=== PATIENT | female | born 1940 | race Caucasian/White ===

== ENCOUNTER 2016-10-11 10:06 | Emergency (ER) | payer OTHER ==
[~2016-10-11] VITALS: Ht 157.5 cm; Wt 136.4 kg
[~2016-10-11 10:06] MED LIST: ADVAIR 250-501 EACH IH; ADVAIR 250/501 DISK IH; AMMONIUM LACTA140 GM TP; Advair HFA 115/21 IH; CALCIUM 600 +1 EAC9 PO; CARDIZEM CD,CA180 MG PO; CARDURA XL4 MG PO; CEFTIN500 MG PO; CELEBREX200 MG PO; CELEBREX50 MG PO; CLARITIN10 MG PO; COUMADIN1 MG PO; COUMADIN2 MG PO; COUMADIN4 MG PO; CYANOCOBALAM1000 MCG PO; Claritin,Alavart PO; Colace PO; D3 DOTS2000 UNIT PO; DILACOR PO; DILTIAZEM 24HR360 M1 PO; DUONEB 2.5-0.5 M3 ML AEROSOL; ERYTHROMYCIN250 M1 PO; ESCITALOPRAM OX20 MG PO; FEROSUL325 MG PO; FERROUS SULFAT325 MG PO; FLONASE16 G1 BOTH NARES; FOLIC ACID1 MG PO; FORTAMET500 M1 PO; FUROSEMIDE40 MG PO; FUROSEMIDE80 MG PO; Folvite PO; GLUCO BURST37.5 GM PO; HUMULIN N100 UNITS/ SC; HUMULIN NP100 UNIT/1 SC; HYDROCHLOROTHIA25 MG PO; K-DUR20 MEQ PO; KEFLEX500 MG PO; KLOR-CON 1010 ME1 PO; KLOR-CON M2020 MEQ PO; LASIX20 MG PO; LASIX40 MG PO; LASIX80 MG PO; LEVEMIR FL100 UNIT/1 SC; LEVOCETIRIZINE D5 MG PO; LEXAPRO20 MG PO; LIDOCAINE700 MG TD; LIDOCARE1 EACH TP; LISINOPRIL20 MG PO; LUNESTA2 MG PO; LYRICA50 MG PO; METAXALL800 MG PO; METAXALONE800 MG PO; METOCLOPRAMIDE10 MG PO; METOLAZONE5 MG PO; MONTELUKAST SOD10 MG PO; MUCINEX600 MG PO; MULTI VITAMIN1 EACH PO; Mycostatin TP; NOVOLOG PE100 UNITS/ SC; NOVOLOG100 UNIT/1 SC; NYSTATIN-TRIAMC15 GM TP; NYSTATIN15 GM TP; OLOPATADINE HCL5 ML BOTH EYES; PANTOPRAZOLE SO40 MG PO; POTASSIUM CHLO20 ME2 PO; PRAVACHOL40 MG PO; PRAVASTATIN SOD40 MG PO; PREDNISONE10 MG PO; PRILOSEC20 MG PO; PROTONIX40 MG PO; PROVENTIL,2.5 MG/0.5 AEROSOL; PROVENTIL,2.5 MG/3 M IH; ROBITUSSIN DM118 ML PO; SKELAXIN800 MG PO; SPIRIVA1 INHALATI IH; TYLENOL ARTHRI650 MG PO; Tamiflu PO; Tylenol/Codeine #3 PO; VICTOZA 2-0.6 MG/0.1 SC; VITAMIN D1000 UNIT PO; VITAMIN D31000 UNIT PO; WARFARIN SODIUM1 MG PO; WARFARIN SODIUM3 MG PO; WARFARIN SODIUM4 MG PO; WOMEN'S MULTI200 MCG PO; XOPENEX1.25 MG/0. IH; XYZAL5 MG PO; Xanax PO; ZESTRIL,PRINIVI40 MG PO; ZOFRAN4 MG PO; Zocor PO; Zofran PO; oxyCODONE PO; predniSONE PO
[2016-10-11 11:21] LABS: HEMATOCRIT 37.9 % (36.0-46.0); MCH 27.2 PG (29.0-34.0); MCHC 31.7 G/DL (30.0-36.0); MCV 85.9 FL (83-99); MEAN PLAT.VOLUME 11.2 uM^3 (9.5-12.4); PLATELET COUNT 203 K/uL (156-360); RBC DIS.WIDTH-CV 13.3 % (11.8-14.6); RBC DIS.WIDTH-SD 41.3 % (39-53); RED BLOOD COUNT 4.41 M/uL (3.80-5.20); WHITE BLOOD COUNT 9.1 K/uL (4.1-10.2)
[2016-10-11 11:39] LABS: CHLORIDE 100 mEq/L (99-109); POTASSIUM 4.4 mEq/L (3.7-5.4); SODIUM 140 mEq/L (136-147)
[2016-10-11 11:42] LABS: GLUCOSE 197 mg/dL (70-99)
[2016-10-11 11:43] LABS: ANION GAP 10 MEQ/L (2-14); TOTAL BILIRUBIN 0.4 mg/dL (0.0-1.0)
[2016-10-11 11:45] LABS: ALKALINE PHOSPHATASE 112 IU/L (3-129); GFR ESTIMATE (CALCULATED) > 59 mL/min/
[2016-10-11 11:46] LABS: UREA NITROGEN (BUN) 14 mg/dL (9-23)
[2016-10-11] MEDS ORDERED: KEFLEX500 MG PO (13:14)
[2016-10-11 14:36] VITALS: BP 100/63
== END 2016-10-11 14:38 ==
LOC: EME 10:06
PROVIDERS: Physician Assistant Medical
DX: L03.116 Cellulitis of left lower limb (principal); S80.12XA Contusion of left lower leg, initial encounter; W22.09XA Striking against other stationary object, initial encounter; J45.909 Unspecified asthma, uncomplicated; J44.9 Chronic obstructive pulmonary disease, unspecified; Z79.01 Long term (current) use of anticoagulants; I11.0 Hypertensive heart disease with heart failure; I50.9 Heart failure, unspecified; G89.29 Other chronic pain; E11.9 Type 2 diabetes mellitus without complications; E78.5 Hyperlipidemia, unspecified; Z86.14 Personal history of Methicillin resistant Staphylococcus aureus infection; Z79.4 Long term (current) use of insulin
CPT/HCPCS: 73502; 80053; 81003; 83605; 85027; 87040; 99281; 99285; J1885; J2543; J7030

== ENCOUNTER 2017-04-03 03:05 | Emergency (ER) | payer OTHER ==
[~2017-04-03] VITALS: Ht 157.5 cm; Wt 126.4 kg
[2017-04-03 06:46] VITALS: BP 139/72
== END 2017-04-03 06:49 ==
LOC: EME 03:05
DX: R40.0 Somnolence (principal); E11.9 Type 2 diabetes mellitus without complications; E78.5 Hyperlipidemia, unspecified; I11.0 Hypertensive heart disease with heart failure; I50.9 Heart failure, unspecified; J44.9 Chronic obstructive pulmonary disease, unspecified; Z86.14 Personal history of Methicillin resistant Staphylococcus aureus infection
CPT/HCPCS: 99281; 99283

== ENCOUNTER 2018-02-02 13:52 | Inpatient (IN) | payer OTHER ==
[~2018-02-02] VITALS: Ht 152.4 cm; Wt 117.9 kg
[2018-02-02 15:04] LABS: BASOPHIL (%) 0.3 % (0-1); EOSINOPHIL COUNT 0.1 K/uL (0-0.3); HEMOGLOBIN 13.9 G/DL (11.9-15.5); IMMATURE GRANULOCYTE (%) 0.3 % (0.0-0.7); LYMPHOCYTE (%) 16.5 % (15-42); MCH 27.7 PG (29.0-34.0); MCHC 31.6 G/DL (30.0-36.0); MCV 87.6 FL (83-99); MONOCYTE (%) 7.4 % (3-12); MONOCYTE COUNT 0.9 K/uL (0-0.8); NEUTROPHIL (%) 74.5 % (45-76); NEUTROPHIL COUNT 8.9 K/uL (1.8-6.4); PLATELET COUNT 221 K/uL (156-360); RBC DIS.WIDTH-CV 13.8 % (11.8-14.6); RBC DIS.WIDTH-SD 44.3 % (39-53); RED BLOOD COUNT 5.02 M/uL (3.80-5.20); WHITE BLOOD COUNT 11.9 K/uL (4.1-10.2)
[2018-02-02 15:20] LABS: ALBUMIN 3.5 g/dL (3.2-4.8)
[2018-02-02 15:21] LABS: CHLORIDE 100 mEq/L (99-109); POTASSIUM 3.3 mEq/L (3.7-5.4); SODIUM 151 mEq/L (136-147)
[2018-02-02 15:23] LABS: GLUCOSE 102 mg/dL (70-99); TOTAL PROTEIN 7.3 g/dL (6.4-8.3)
[2018-02-02 15:25] LABS: TOTAL BILIRUBIN 0.4 mg/dL (0.0-1.0)
[2018-02-02 15:26] LABS: ALKALINE PHOSPHATASE 128 IU/L (3-129)
[2018-02-02 15:27] LABS: GFR ESTIMATE (CALCULATED) 57 mL/min/
[2018-02-02 15:28] LABS: AST (GOT) 12 IU/L (2-34); DIRECT BILIRUBIN 0.3 mg/dL (0.0-0.3); UREA NITROGEN (BUN) 25 mg/dL (9-23)
[2018-02-02 15:29] LABS: ALT (GPT) 8 IU/L (3-49); TROP-I INTERPRETATION NEGATIVE; TROPONIN-I 0.02 ng/mL (0.0-0.30)
[2018-02-02 15:30] LABS: LIPASE 53 U/L (1.0-51.0)
[2018-02-02 20:15] LABS: APPEARANCE CLEAR ((CLEAR)); BILIRUBIN NEGATIVE; BLOOD NEGATIVE; COLOR YELLOW ((YELLOW)); GLUCOSE (STRIP) NEGATIVE; KETONES 20; LEUKOCYTES SMALL; NITRITE NEGATIVE; PROTEIN (STRIP) NEGATIVE; SPECIFIC GRAVITY 1.018 (1.000-1.030)
[2018-02-02 20:21] LABS: BACTERIA NONE SEEN /HPF; EPITHELIAL CELLS RARE /HPF; MUCUS 2+ /LPF; RED BLOOD CELLS 0-5 /HPF (0-5); UCUL ADDED? YES; WHITE BLOOD CELLS 20-30 /HPF (0-5)
[2018-02-02] MEDS ORDERED: ATIVAN0.5 MG PO (21:44)
[2018-02-02] MEDS ORDERED: COUMADIN3 MG PO (21:45)
[2018-02-02] MEDS ORDERED: CLARITIN,ALAVAR10 MG PO (21:45)
[2018-02-02] MEDS ORDERED: DILTIAZEM 24HR360 M1 PO (21:46)
[2018-02-02] MEDS ORDERED: ESCITALOPRAM OXALATE PO (21:51)
[2018-02-02] MEDS ORDERED: FOLIC ACID1 MG PO (21:52)
[2018-02-02] MEDS ORDERED: IRON325 M1 PO (21:52)
[2018-02-02] MEDS ORDERED: POTASSIUM CHLO20 ME2 PO (21:53)
[2018-02-02] MEDS ORDERED: KLOR-CON M2020 MEQ PO (21:54)
[2018-02-02] MEDS ORDERED: LEVEMIR FL100 UNIT/1 SC ×2 (21:56→21:57)
[2018-02-02] MEDS ORDERED: SINGULAIR10 MG PO (21:57)
[2018-02-02] MEDS ORDERED: PRAVACHOL40 MG PO (21:58)
[2018-02-02] MEDS ORDERED: PROTONIX40 MG PO (21:58)
[2018-02-02] MEDS ORDERED: VITAMIN D33000 UNIT PO (21:59)
[2018-02-02] MEDS ORDERED: SPIRIVA18 MCG IH (21:59)
[2018-02-02] MEDS ORDERED: ADVAIR 250/501 DISK IH (22:00)
[2018-02-02] MEDS ORDERED: LASIX20 MG PO (22:00)
[2018-02-02] MEDS ORDERED: LYRICA75 MG PO (22:01)
[2018-02-02] MEDS ORDERED: REGLAN10 MG PO (22:02)
[2018-02-02] MEDS ORDERED: DULCOLAX10 MG PR (22:03)
[2018-02-02] MEDS ORDERED: GLUCO BURST37.5 GM PO (22:04)
[2018-02-02] MEDS ORDERED: PROMETHAZINE HC25 M1 PO (22:05)
[2018-02-02] MEDS ORDERED: TYLENOL ARTHRI650 MG PO (22:06)
[2018-02-02] MEDS ORDERED: ZOFRAN4 MG PO (22:06)
[2018-02-02 23:48] VITALS: BP 149/84
[2018-02-03 06:41] VITALS: BP 125/65
[2018-02-03 11:53] VITALS: BP 153/67
[2018-02-03 16:00] VITALS: BP 120/66
[2018-02-03 19:57] VITALS: BP 107/59
[2018-02-04 00:12] VITALS: BP 122/73
[2018-02-04 06:22] LABS: PTT 45.8 SEC (25-37)
[2018-02-04 06:25] LABS: BASOPHIL (%) 0.4 % (0-1); EOSINOPHIL (%) 3.5 % (0-5); EOSINOPHIL COUNT 0.3 K/uL (0-0.3); HEMATOCRIT 38.2 % (36.0-46.0); IMMATURE GRANULOCYTE (%) 0.3 % (0.0-0.7); LYMPHOCYTE COUNT 2.2 K/uL (1.0-2.8); MCH 27.4 PG (29.0-34.0); MCHC 31.2 G/DL (30.0-36.0); MCV 87.8 FL (83-99); MONOCYTE (%) 7.2 % (3-12); MONOCYTE COUNT 0.7 K/uL (0-0.8); NEUTROPHIL (%) 65.6 % (45-76); NEUTROPHIL COUNT 6.1 K/uL (1.8-6.4); PLATELET COUNT 190 K/uL (156-360); RBC DIS.WIDTH-CV 13.6 % (11.8-14.6); RED BLOOD COUNT 4.35 M/uL (3.80-5.20); WHITE BLOOD COUNT 9.3 K/uL (4.1-10.2)
[2018-02-04 06:30] LABS: HEMOGLOBIN 11.9 G/DL (11.9-15.5)
[2018-02-04 06:41] LABS: INTER. NORMALIZED RATIO 4.7
[2018-02-04 07:22] LABS: CHLORIDE 101 MEQ/L (99-109); GLUCOSE 81 mg/dL (70-99); POTASSIUM 2.8 MEQ/L (3.7-5.4); SODIUM 146 MEQ/L (136-147); UREA NITROGEN (BUN) 15 mg/dL (9-23)
[2018-02-04 07:26] LABS: CREATININE 0.5 MG/DL (0.6-1.3); GFR ESTIMATE (CALCULATED) > 59 mL/min/
[2018-02-04 08:00] VITALS: BP 100/70
[2018-02-04 15:31] VITALS: BP 148/72
[2018-02-04 20:03] VITALS: BP 160/58
[2018-02-05 00:48] VITALS: BP 136/90
[2018-02-05 05:46] LABS: HEMATOCRIT 40.5 % (36.0-46.0); HEMOGLOBIN 12.7 G/DL (11.9-15.5); MCHC 31.4 G/DL (30.0-36.0); MCV 86.2 FL (83-99); PLATELET COUNT 188 K/uL (156-360); RBC DIS.WIDTH-CV 13.2 % (11.8-14.6); RBC DIS.WIDTH-SD 41.5 % (39-53); WHITE BLOOD COUNT 9.2 K/uL (4.1-10.2)
[2018-02-05 06:04] LABS: INTER. NORMALIZED RATIO 1.9
[2018-02-05 06:17] LABS: CHLORIDE 100 MEQ/L (99-109); CREATININE 0.5 MG/DL (0.6-1.3); GFR ESTIMATE (CALCULATED) > 59 mL/min/; GLUCOSE 90 mg/dL (70-99); SODIUM 144 MEQ/L (136-147); UREA NITROGEN (BUN) 10 mg/dL (9-23)
[2018-02-05 06:18] LABS: POTASSIUM 3.4 MEQ/L (3.7-5.4)
[2018-02-05 08:14] VITALS: BP 127/86
[2018-02-05 15:25] VITALS: BP 120/89
[2018-02-05 23:38] VITALS: BP 124/81
[2018-02-06 05:52] LABS: HEMATOCRIT 43.5 % (36.0-46.0); HEMOGLOBIN 13.8 G/DL (11.9-15.5); MCH 27.7 PG (29.0-34.0); MCHC 31.7 G/DL (30.0-36.0); MCV 87.2 FL (83-99); PLATELET COUNT 205 K/uL (156-360); RBC DIS.WIDTH-CV 13.4 % (11.8-14.6); RBC DIS.WIDTH-SD 42.8 % (39-53); RED BLOOD COUNT 4.99 M/uL (3.80-5.20); WHITE BLOOD COUNT 15.3 K/uL (4.1-10.2)
[2018-02-06 06:15] LABS: INTER. NORMALIZED RATIO 1.3
[2018-02-06 06:22] LABS: CHLORIDE 98 MEQ/L (99-109); CREATININE 0.6 MG/DL (0.6-1.3); GFR ESTIMATE (CALCULATED) > 59 mL/min/; POTASSIUM 3.8 MEQ/L (3.7-5.4); SODIUM 142 MEQ/L (136-147); UREA NITROGEN (BUN) 11 mg/dL (9-23)
[2018-02-06 06:26] LABS: GLUCOSE 150 mg/dL (70-99)
[2018-02-06 08:00] VITALS: BP 120/83
[2018-02-06 10:23] LABS: HEMOGLOBIN A1c (GLYCOHEMOGLOB) 6.1 % (Below 5.7)
[2018-02-06 15:55] VITALS: BP 129/67
[2018-02-06 23:59] VITALS: BP 130/60
[2018-02-07 06:44] LABS: INTER. NORMALIZED RATIO 1.2
[2018-02-07 07:02] LABS: HEMATOCRIT 38.6 % (36.0-46.0); HEMOGLOBIN 12.3 G/DL (11.9-15.5); MCH 27.8 PG (29.0-34.0); MCHC 31.9 G/DL (30.0-36.0); MCV 87.1 FL (83-99); PLATELET COUNT 211 K/uL (156-360); RBC DIS.WIDTH-CV 13.5 % (11.8-14.6); RBC DIS.WIDTH-SD 43.2 % (39-53); RED BLOOD COUNT 4.43 M/uL (3.80-5.20); WHITE BLOOD COUNT 16.9 K/uL (4.1-10.2)
[2018-02-07 07:49] LABS: ALBUMIN 2.4 G/DL (3.2-4.8); CHLORIDE 97 MEQ/L (99-109); CREATININE < 0.2 MG/DL (0.6-1.3); GFR ESTIMATE (CALCULATED) > 59 mL/min/; PHOSPHORUS 2.5 mg/dL (2.5-4.9); POTASSIUM 3.6 MEQ/L (3.7-5.4); SODIUM 139 MEQ/L (136-147); UREA NITROGEN (BUN) 12 mg/dL (9-23)
[2018-02-07 07:50] VITALS: BP 113/75
[2018-02-07 07:52] LABS: GLUCOSE 68 mg/dL (70-99)
[2018-02-07 19:57] VITALS: BP 113/67
[2018-02-07 19:59] VITALS: BP 135/67
[2018-02-08 00:40] VITALS: BP 128/62
[2018-02-08 04:19] VITALS: BP 134/73
[2018-02-08 07:21] VITALS: BP 121/57
[2018-02-08 08:14] LABS: HEMATOCRIT 33.8 % (36.0-46.0); HEMOGLOBIN 10.7 G/DL (11.9-15.5); MCH 27.3 PG (29.0-34.0); MCHC 31.7 G/DL (30.0-36.0); MCV 86.2 FL (83-99); PLATELET COUNT 209 K/uL (156-360); RBC DIS.WIDTH-CV 13.6 % (11.8-14.6); RBC DIS.WIDTH-SD 42.6 % (39-53); RED BLOOD COUNT 3.92 M/uL (3.80-5.20); WHITE BLOOD COUNT 11.2 K/uL (4.1-10.2)
[2018-02-08 08:21] LABS: INTER. NORMALIZED RATIO 1.2
[2018-02-08 08:47] LABS: ALBUMIN 2.3 G/DL (3.2-4.8); CHLORIDE 96 MEQ/L (99-109); CREATININE 0.4 MG/DL (0.6-1.3); GFR ESTIMATE (CALCULATED) > 59 mL/min/; PHOSPHORUS 2.4 mg/dL (2.5-4.9); POTASSIUM 3.4 MEQ/L (3.7-5.4); SODIUM 137 MEQ/L (136-147); UREA NITROGEN (BUN) 8 mg/dL (9-23)
[2018-02-08 08:52] LABS: GLUCOSE 116 mg/dL (70-99)
[2018-02-08 16:00] VITALS: BP 126/56
[2018-02-08 20:02] VITALS: BP 107/58
[2018-02-08 23:04] VITALS: BP 141/73
[2018-02-09 04:24] VITALS: BP 130/61
[2018-02-09 06:35] LABS: BASOPHIL (%) 0.6 % (0-1); BASOPHIL COUNT 0.1 K/uL (0-0.1); EOSINOPHIL (%) 6.7 % (0-5); EOSINOPHIL COUNT 0.6 K/uL (0-0.3); HEMATOCRIT 34.2 % (36.0-46.0); HEMOGLOBIN 10.8 G/DL (11.9-15.5); IMMATURE GRANULOCYTE (%) 0.5 % (0.0-0.7); LYMPHOCYTE (%) 22.1 % (15-42); LYMPHOCYTE COUNT 1.9 K/uL (1.0-2.8); MCH 27.6 PG (29.0-34.0); MCHC 31.6 G/DL (30.0-36.0); MCV 87.5 FL (83-99); MONOCYTE (%) 7.4 % (3-12); MONOCYTE COUNT 0.6 K/uL (0-0.8); NEUTROPHIL (%) 62.7 % (45-76); NEUTROPHIL COUNT 5.5 K/uL (1.8-6.4); PLATELET COUNT 218 K/uL (156-360); RBC DIS.WIDTH-CV 13.8 % (11.8-14.6); RBC DIS.WIDTH-SD 43.1 % (39-53); RED BLOOD COUNT 3.91 M/uL (3.80-5.20); WHITE BLOOD COUNT 8.7 K/uL (4.1-10.2)
[2018-02-09 06:49] LABS: INTER. NORMALIZED RATIO 1.2
[2018-02-09 06:58] LABS: ALBUMIN 2.4 G/DL (3.2-4.8); CHLORIDE 101 MEQ/L (99-109); CREATININE 0.4 MG/DL (0.6-1.3); GFR ESTIMATE (CALCULATED) > 59 mL/min/; GLUCOSE 147 mg/dL (70-99); PHOSPHORUS 2.3 mg/dL (2.5-4.9); POTASSIUM 3.3 MEQ/L (3.7-5.4); SODIUM 140 MEQ/L (136-147); UREA NITROGEN (BUN) 4 mg/dL (9-23)
[2018-02-09 07:10] VITALS: BP 135/67
[2018-02-09 11:00] VITALS: BP 135/80
[2018-02-09 15:00] VITALS: BP 131/69
[2018-02-09 19:59] VITALS: BP 117/69
[2018-02-09 23:13] VITALS: BP 154/66
[2018-02-10 06:46] LABS: INTER. NORMALIZED RATIO 1.3
[2018-02-10 07:14] LABS: CHLORIDE 107 MEQ/L (99-109); CREATININE 0.4 MG/DL (0.6-1.3); GFR ESTIMATE (CALCULATED) > 59 mL/min/; POTASSIUM 3.5 MEQ/L (3.7-5.4); SODIUM 146 MEQ/L (136-147); UREA NITROGEN (BUN) 3 mg/dL (9-23)
[2018-02-10 07:18] LABS: GLUCOSE 65 mg/dL (70-99)
[2018-02-10 07:35] VITALS: BP 168/79
[2018-02-10 15:00] VITALS: BP 144/84
[2018-02-10 19:50] VITALS: BP 117/67
[2018-02-10 20:09] LABS: CARBOXY HGB 0.9 % (0-5); DEVICE NC; METHEMOGLOBIN 1.1 % (0-1.5); O2 FLOW 2 L/MIN; PCO2 56 mm Hg (35-45); PO2 98 mm Hg (80-100); SITE LR; TOTAL RESP RATE 12 resp/min; pH 7.42 (7.35-7.45)
[2018-02-10 20:10] LABS: BICARBONATE 36.3 mEq/L (22-26)
[2018-02-10 20:20] VITALS: BP 116/60
[2018-02-10 20:42] LABS: BASOPHIL (%) 0.6 % (0-1); BASOPHIL COUNT 0.1 K/uL (0-0.1); EOSINOPHIL (%) 5.6 % (0-5); EOSINOPHIL COUNT 0.5 K/uL (0-0.3); HEMATOCRIT 36.3 % (36.0-46.0); HEMOGLOBIN 11.5 G/DL (11.9-15.5); IMMATURE GRANULOCYTE (%) 0.2 % (0.0-0.7); LYMPHOCYTE (%) 20.1 % (15-42); LYMPHOCYTE COUNT 1.6 K/uL (1.0-2.8); MCHC 31.7 G/DL (30.0-36.0); MCV 88.3 FL (83-99); MONOCYTE (%) 10.9 % (3-12); MONOCYTE COUNT 0.9 K/uL (0-0.8); NEUTROPHIL (%) 62.6 % (45-76); NEUTROPHIL COUNT 5.1 K/uL (1.8-6.4); PLATELET COUNT 256 K/uL (156-360); RBC DIS.WIDTH-CV 13.8 % (11.8-14.6); RBC DIS.WIDTH-SD 44.7 % (39-53); RED BLOOD COUNT 4.11 M/uL (3.80-5.20); WHITE BLOOD COUNT 8.1 K/uL (4.1-10.2)
[2018-02-10 20:51] LABS: CHLORIDE 109 mEq/L (99-109); POTASSIUM 3.5 mEq/L (3.7-5.4); SODIUM 145 mEq/L (136-147)
[2018-02-10 20:56] LABS: CREATININE 0.6 mg/dL (0.6-1.3); GFR ESTIMATE (CALCULATED) > 59 mL/min/
[2018-02-10 20:57] LABS: UREA NITROGEN (BUN) 2 mg/dL (9-23)
[2018-02-10 20:58] LABS: GLUCOSE 154 mg/dL (70-99)
[2018-02-11] VITALS (7 sets, daily range): BP systolic 100–172; BP diastolic 55–85
[2018-02-11 05:44] LABS: BASOPHIL (%) 0.9 % (0-1); BASOPHIL COUNT 0.1 K/uL (0-0.1); EOSINOPHIL (%) 6.8 % (0-5); EOSINOPHIL COUNT 0.5 K/uL (0-0.3); HEMATOCRIT 37.1 % (36.0-46.0); HEMOGLOBIN 11.2 G/DL (11.9-15.5); IMMATURE GRANULOCYTE (%) 0.4 % (0.0-0.7); LYMPHOCYTE (%) 26.8 % (15-42); LYMPHOCYTE COUNT 2.1 K/uL (1.0-2.8); MCHC 30.2 G/DL (30.0-36.0); MCV 89.4 FL (83-99); MONOCYTE (%) 11.6 % (3-12); MONOCYTE COUNT 0.9 K/uL (0-0.8); NEUTROPHIL (%) 53.5 % (45-76); NEUTROPHIL COUNT 4.2 K/uL (1.8-6.4); PLATELET COUNT 254 K/uL (156-360); RBC DIS.WIDTH-CV 13.8 % (11.8-14.6); RBC DIS.WIDTH-SD 44.5 % (39-53); RED BLOOD COUNT 4.15 M/uL (3.80-5.20); WHITE BLOOD COUNT 7.8 K/uL (4.1-10.2)
[2018-02-11 05:58] LABS: INTER. NORMALIZED RATIO 1.5
[2018-02-11 06:09] LABS: ALBUMIN 2.4 G/DL (3.2-4.8); CHLORIDE 107 MEQ/L (99-109); CREATININE 0.5 MG/DL (0.6-1.3); GFR ESTIMATE (CALCULATED) > 59 mL/min/; GLUCOSE 142 mg/dL (70-99); POTASSIUM 4.2 MEQ/L (3.7-5.4); SODIUM 148 MEQ/L (136-147); UREA NITROGEN (BUN) 3 mg/dL (9-23)
[2018-02-11 06:10] LABS: PHOSPHORUS 3.5 mg/dL (2.5-4.9)
[2018-02-12] VITALS (7 sets, daily range): BP systolic 106–157; BP diastolic 65–83
[2018-02-12 06:26] LABS: INTER. NORMALIZED RATIO 1.6
[2018-02-12] MEDS ORDERED: COUMADIN1 MG PO (18:51)
[2018-02-13] VITALS (7 sets, daily range): BP systolic 109–143; BP diastolic 55–93
[2018-02-13 05:55] LABS: HEMOGLOBIN 10.5 G/DL (11.9-15.5); MCH 27.3 PG (29.0-34.0); MCHC 30.9 G/DL (30.0-36.0); MCV 88.5 FL (83-99); PLATELET COUNT 224 K/uL (156-360); RBC DIS.WIDTH-CV 13.6 % (11.8-14.6); RBC DIS.WIDTH-SD 43.9 % (39-53); RED BLOOD COUNT 3.84 M/uL (3.80-5.20); WHITE BLOOD COUNT 6.3 K/uL (4.1-10.2)
[2018-02-13 06:19] LABS: CHLORIDE 108 MEQ/L (99-109); CREATININE 0.4 MG/DL (0.6-1.3); GFR ESTIMATE (CALCULATED) > 59 mL/min/; GLUCOSE 154 mg/dL (70-99); SODIUM 146 MEQ/L (136-147); UREA NITROGEN (BUN) 3 mg/dL (9-23)
[2018-02-14 04:03] VITALS: BP 110/63
[2018-02-14 06:53] LABS: HEMATOCRIT 35.8 % (36.0-46.0); HEMOGLOBIN 11.1 G/DL (11.9-15.5); MCH 27.4 PG (29.0-34.0); MCV 88.4 FL (83-99); PLATELET COUNT 265 K/uL (156-360); RBC DIS.WIDTH-CV 13.8 % (11.8-14.6); RED BLOOD COUNT 4.05 M/uL (3.80-5.20); WHITE BLOOD COUNT 10.2 K/uL (4.1-10.2)
[2018-02-14 06:58] LABS: INTER. NORMALIZED RATIO 2.6
[2018-02-14 07:04] VITALS: BP 116/59
[2018-02-14 07:29] LABS: ALBUMIN 2.4 G/DL (3.2-4.8); CHLORIDE 106 MEQ/L (99-109); CREATININE 0.5 MG/DL (0.6-1.3); GFR ESTIMATE (CALCULATED) > 59 mL/min/; GLUCOSE 161 mg/dL (70-99); POTASSIUM 4.1 MEQ/L (3.7-5.4); SODIUM 146 MEQ/L (136-147); UREA NITROGEN (BUN) 5 mg/dL (9-23)
[2018-02-14 07:33] LABS: PHOSPHORUS 2.1 mg/dL (2.5-4.9)
[2018-02-14 11:30] VITALS: BP 140/64
[2018-02-14 15:40] VITALS: BP 122/59
[2018-02-14 18:52] VITALS: BP 113/79
[2018-02-14 23:01] VITALS: BP 112/57
[2018-02-15 03:23] VITALS: BP 121/69
[2018-02-15 07:10] VITALS: BP 128/78
[2018-02-15 10:41] LABS: INTER. NORMALIZED RATIO 2.8
[2018-02-15 10:56] VITALS: BP 120/59
[2018-02-15 15:50] VITALS: BP 135/73
[2018-02-16] VITALS (8 sets, daily range): BP systolic 94–136; BP diastolic 24–72
[2018-02-16 06:44] LABS: HEMATOCRIT 35.4 % (36.0-46.0); HEMOGLOBIN 10.7 G/DL (11.9-15.5); MCH 27.3 PG (29.0-34.0); MCHC 30.2 G/DL (30.0-36.0); MCV 90.3 FL (83-99); PLATELET COUNT 210 K/uL (156-360); RBC DIS.WIDTH-CV 14.3 % (11.8-14.6); RBC DIS.WIDTH-SD 46.8 % (39-53); RED BLOOD COUNT 3.92 M/uL (3.80-5.20)
[2018-02-16 06:47] LABS: INTER. NORMALIZED RATIO 2.6
[2018-02-16 07:08] LABS: CHLORIDE 106 MEQ/L (99-109); CREATININE 0.5 MG/DL (0.6-1.3); GFR ESTIMATE (CALCULATED) > 59 mL/min/; GLUCOSE 229 mg/dL (70-99); POTASSIUM 4.6 MEQ/L (3.7-5.4); SODIUM 140 MEQ/L (136-147); UREA NITROGEN (BUN) 5 mg/dL (9-23)
[2018-02-17] VITALS (7 sets, daily range): BP systolic 106–165; BP diastolic 57–100
[2018-02-17 06:47] LABS: INTER. NORMALIZED RATIO 2.4
[2018-02-18] VITALS (9 sets, daily range): BP systolic 99–136; BP diastolic 64–88
[2018-02-18 06:36] LABS: INTER. NORMALIZED RATIO 2.4
[2018-02-18 06:48] LABS: CHLORIDE 105 MEQ/L (99-109); CREATININE 0.5 MG/DL (0.6-1.3); GFR ESTIMATE (CALCULATED) > 59 mL/min/; GLUCOSE 154 mg/dL (70-99); POTASSIUM 4.4 MEQ/L (3.7-5.4); SODIUM 143 MEQ/L (136-147); UREA NITROGEN (BUN) 6 mg/dL (9-23)
[2018-02-19] VITALS (11 sets, daily range): BP systolic 10–123; BP diastolic 51–79
[2018-02-19 06:20] LABS: INTER. NORMALIZED RATIO 2.1
[2018-02-20 00:09] VITALS: BP 109/71
[2018-02-20 06:05] LABS: INTER. NORMALIZED RATIO 2.2
[2018-02-20 06:23] LABS: CHLORIDE 105 MEQ/L (99-109); CREATININE 0.5 MG/DL (0.6-1.3); GFR ESTIMATE (CALCULATED) > 59 mL/min/; GLUCOSE 183 mg/dL (70-99); POTASSIUM 3.6 MEQ/L (3.7-5.4); SODIUM 146 MEQ/L (136-147); UREA NITROGEN (BUN) 4 mg/dL (9-23)
[2018-02-20 07:10] VITALS: BP 100/53
[2018-02-20 07:43] LABS: DEVICE NC; O2 FLOW 3 L/MIN; SITE LR; TOTAL RESP RATE 16 resp/min
[2018-02-20 07:44] LABS: BASE EXCESS 5.7 mEq/L (-3 to +3); BICARBONATE 32.6 mEq/L (22-26); CARBOXY HGB 0.8 % (0-5); METHEMOGLOBIN 0.9 % (0-1.5); PCO2 59 mm Hg (35-45); PO2 108 mm Hg (80-100); pH 7.35 (7.35-7.45)
[2018-02-20 16:00] VITALS: BP 135/81
[2018-02-20 19:16] VITALS: BP 99/63
[2018-02-20 22:43] VITALS: BP 104/59
[2018-02-21 03:29] VITALS: BP 108/55
[2018-02-21 05:49] LABS: INTER. NORMALIZED RATIO 2.6
[2018-02-21 07:15] VITALS: BP 93/53
[2018-02-21] MEDS ORDERED: LOPRESSOR50 MG PO (09:22)
== END 2018-02-21 16:44 | DRG 391 ==
LOC: EME 13:52 → EDOF 22:08 → 5EAST 22:08 → CANRESERV 22:12 → ENRESERV 22:12 → 5EAST 23:31
PROVIDERS: Emergency Medicine; Family Medicine; Internal Medicine; Internal Medicine Gastroenterology
PROC: 0D9670Z Drainage of Stomach with Drainage Device, Via Natural or Artificial Opening (ICD-10-PCS; principal; 2018-02-07)
DX: K31.84 Gastroparesis (principal); E87.0 Hyperosmolality and hypernatremia; M51.16 Intervertebral disc disorders with radiculopathy, lumbar region; J96.90 Respiratory failure, unspecified, unspecified whether with hypoxia or hypercapnia; I48.2 Chronic atrial fibrillation; E66.2 Morbid (severe) obesity with alveolar hypoventilation; I13.0 Hypertensive heart and chronic kidney disease with heart failure and stage 1 through stage 4 chronic kidney disease, or unspecified chronic kidney disease; R53.81 Other malaise; E11.43 Type 2 diabetes mellitus with diabetic autonomic (poly)neuropathy; E11.22 Type 2 diabetes mellitus with diabetic chronic kidney disease; M19.90 Unspecified osteoarthritis, unspecified site; I50.9 Heart failure, unspecified; N18.2 Chronic kidney disease, stage 2 (mild); R26.9 Unspecified abnormalities of gait and mobility; Z51.5 Encounter for palliative care; K80.20 Calculus of gallbladder without cholecystitis without obstruction; E78.5 Hyperlipidemia, unspecified; F41.9 Anxiety disorder, unspecified; J98.11 Atelectasis; I27.20 Pulmonary hypertension, unspecified; K59.00 Constipation, unspecified; D61.818 Other pancytopenia; F32.9 Major depressive disorder, single episode, unspecified; Z77.22 Contact with and (suspected) exposure to environmental tobacco smoke (acute) (chronic); Z99.81 Dependence on supplemental oxygen; Z79.4 Long term (current) use of insulin; Z79.01 Long term (current) use of anticoagulants; Z88.1 Allergy status to other antibiotic agents; Z90.49 Acquired absence of other specified parts of digestive tract; Z68.43 Body mass index [BMI] 50.0-59.9, adult; K70.30 Alcoholic cirrhosis of liver without ascites; E87.6 Hypokalemia; Z74.01 Bed confinement status; Z79.899 Other long term (current) drug therapy; J43.9 Emphysema, unspecified; I87.2 Venous insufficiency (chronic) (peripheral)
CPT/HCPCS: 36600; 70450; 71045; 74018; 74176; 80048; 80048 91; 80069; 80076; 81003; 82140; 82948; 83036; 83605; 83690; 84132 91; 84484; 85025; 85027; 85610; 85730; 87086; 92610 GN; 93005; 94640; 94760; 94799; 99281; 99285; J0696; J1815; J1940; J2405; J2765; J3480; J7030; J7040; J7050; Q0169

== ENCOUNTER 2018-02-25 19:17 | Emergency (ER) | payer OTHER ==
[~2018-02-25] VITALS: Ht 157.5 cm; Wt 121.8 kg
[~2018-02-25 19:17] MED LIST changes: +ATIVAN0.5 MG PO; +CLARITIN,ALAVAR10 MG PO; +COUMADIN3 MG PO; +DULCOLAX10 MG PR; +ESCITALOPRAM OXALATE PO; +IRON325 M1 PO; +LOPRESSOR50 MG PO; +LYRICA75 MG PO; +PROMETHAZINE HC25 M1 PO; +REGLAN10 MG PO; +SINGULAIR10 MG PO; +SPIRIVA18 MCG IH; +VITAMIN D33000 UNIT PO
[2018-02-25 20:06] LABS: HEMATOCRIT 35.9 % (36.0-46.0); HEMOGLOBIN 11.5 G/DL (11.9-15.5); MCH 27.8 PG (29.0-34.0); MCV 86.7 FL (83-99); PLATELET COUNT 178 K/uL (156-360); RBC DIS.WIDTH-CV 14.7 % (11.8-14.6); RBC DIS.WIDTH-SD 47.2 % (39-53); RED BLOOD COUNT 4.14 M/uL (3.80-5.20)
[2018-02-25 20:14] LABS: CHLORIDE 88 mEq/L (99-109); SODIUM 142 mEq/L (136-147)
[2018-02-25 20:16] LABS: GLUCOSE 167 mg/dL (70-99)
[2018-02-25 20:20] LABS: CREATININE 0.7 mg/dL (0.6-1.3); GFR ESTIMATE (CALCULATED) > 59 mL/min/; UREA NITROGEN (BUN) 3 mg/dL (9-23)
[2018-02-25 20:24] LABS: MAGNESIUM 0.7 mg/dL (1.3-2.7); POTASSIUM 2.2 mEq/L (3.7-5.4)
[2018-02-25] MEDS ORDERED: XARELTO20 MG PO (21:27)
[2018-02-25] MEDS ORDERED: HUMALOG100 UNIT/2 SC (21:30)
[2018-02-26 02:53] VITALS: BP 102/70
== END 2018-02-26 02:55 ==
LOC: EME → EDBD 19:17 → EME 19:17
PROVIDERS: Emergency Medicine
DX: E83.42 Hypomagnesemia (principal); E87.6 Hypokalemia; E87.1 Hypo-osmolality and hyponatremia; E78.5 Hyperlipidemia, unspecified; E11.9 Type 2 diabetes mellitus without complications; J44.9 Chronic obstructive pulmonary disease, unspecified; I50.9 Heart failure, unspecified; F41.9 Anxiety disorder, unspecified; F32.9 Major depressive disorder, single episode, unspecified; Z79.4 Long term (current) use of insulin; Z86.14 Personal history of Methicillin resistant Staphylococcus aureus infection; Z85.9 Personal history of malignant neoplasm, unspecified; Z90.49 Acquired absence of other specified parts of digestive tract; Z88.1 Allergy status to other antibiotic agents; Z88.8 Allergy status to other drugs, medicaments and biological substances
CPT/HCPCS: 80048; 82330; 83735; 85027; 93005; 99281; 99285; J3475; J3480; J7030; J7050